=== PATIENT | male | born 1965 | race American Indian/Alaskan Native ===

== ENCOUNTER 2021-07-24 21:15 | Emergency (ER) | payer SELFPAY ==
[2021-07-24 23:17] LABS: Basophils # (Auto) 0.1 K/mm3 (0.0-0.1); Basophils % (Auto) 0.9 % (0.0-1.8); Eosinophils % (Auto) 0.6 % (0.0-4.3); Hemoglobin 13.4 gm/dl (11.8-15.2); Lymphocytes # (Auto) 1.6 K/mm3 (1.2-5.4); Lymphocytes % (Auto) 23.4 % (13.4-35.0); Mean Corpuscular HGB Conc 32 % (32-34); Mean Corpuscular Volume 83 fl (84-94); Monocytes # (Auto) 0.4 K/mm3 (0.0-0.8); Monocytes % (Auto) 5.3 % (0.0-7.3); Platelet Count 243 K/mm3 (140-440); Red Blood Count 5.06 M/mm3 (3.65-5.03); Red Cell Distribution Width 14.7 % (13.2-15.2)
[2021-07-24 23:35] LABS: Albumin 4.1 g/dL (3.9-5); Calcium 9.5 mg/dL (8.4-10.2)
[2021-07-25] MEDS ORDERED: cloNIDine 0.1 MG TAB PO ONE ×2 (03:50→06:37)
--- NOTE | 2021-07-25 03:52 | Emergency Department Report ---
ED General Adult HPI - General Chief complaint: High BP Stated complaint: HIGH BP Time Seen by Provider: 07/25/21 03:46 Source: patient Mode of arrival: Ambulatory Limitations: No Limitations - History of Present Illness Initial comments: Patient is 56 years old male with no significant past medical history. Patient stated that he went for a physical for his job and they found that his blood pressure is really high and asked him to come to the ER. Patient stated that he was never been diagnosed with high blood pressure before. He denies any heada yeni, neck pain, chest pain, shortness of breath, weakness numbness or tingling sensation. No bowel or bladder incontinence. - Related Data Allergies Allergy/AdvReac Type Severity Reaction Status Date / Time No Known Allergies Allergy Unverified 07/24/21 22:43 ED Review of Systems ROS: Stated complaint: HIGH BP Other details as noted in HPI Comment: All other systems reviewed and negative Constitutional: denies: chills, diaphoresis Respiratory: denies: cough, shortness of breath, SOB with exertion Cardiovascular: denies: chest pain, palpitations Gastrointestinal: denies: abdominal pain, nausea, vomiting, diarrhea, constipation, hematemesis, hematochezia Musculoskeletal: denies: back pain Neurological: denies: headache, weakness, numbness, paresthesias, confusion, abnormal gait ED Past Medical Hx - Past Medical History Previous Medical History?: No - Surgical History Past Surgical History?: No ED Physical Exam - General Limitations: No Limitations General appearance: alert, in no apparent distress - Head Head exam: Present: atraumatic, normocephalic, normal inspection - Eye Eye exam: Present: normal appearance, PERRL - ENT ENT exam: Present: normal exam, normal orophraynx, mucous membranes moist - Neck Neck exam: Present: normal inspection, full ROM. Absent: tenderness, meningismus - Respiratory Respiratory exam: Present: normal lung sounds bilaterally - Cardiovascular Cardiovascular Exam: Present: regular rate, normal rhythm, normal heart sounds - GI/Abdominal GI/Abdominal exam: Present: soft, normal bowel sounds. Absent: distended, tende rness, guarding, rebound, rigid, organomegaly, mass, bruit, pulsatile mass, hernia - Extremities Exam Extremities exam: Present: normal inspection, full ROM, normal capillary refill. Absent: tenderness - Back Exam Back exam: Present: normal inspection, full ROM. Absent: CVA tenderness (R), CVA tenderness (L) - Neurological Exam Neurological exam: Present: alert, oriented X3, CN II-XII intact - Psychiatric Psychiatric exam: Present: normal mood - Skin Skin exam: Present: warm, intact, normal color ED Course Vital Signs 07/24/21 07/25/21 07/25/21 22:37 04:06 05:43 Temperature 98.2 F Pulse Rate 97 H 81 78 Respiratory 16 15 Rate Blood Pressure 223/108 Blood Pressure 232/141 [Left] O2 Sat by Pulse 100 97 Oximetry 07/25/21 07/25/21 07/25/21 05:46 06:00 06:02 Temperature Pulse Rate 72 73 Respiratory 14 14 Rate Blood Pressure 184/107 177/102 Blood Pressure [Left] O2 Sat by Pulse 96 99 98 Oximetry ED Medical Decision Making - Lab Data Result diagrams: 07/24/21 23:03 07/24/21 23:03 - Medical Decision Making Patient is 56 years old male with no significant past medical history. Patient stated that he went for a physical for his job and they found that his blood pressure is really high and asked him to come to the ER. Patient stated that he was never been diagnosed with high blood pressure before. He denies any headache, neck pain, chest pain, shortness of breath, weakness numbness or tingling sensation. No bowel or bladder incontinence. Patient received clonidine 0.2 mg with significant improvement in his blood pressure. Labs reviewed and is unremarkable. I started patient on Norvasc 10 mg and advised to follow-up with his primary doctor in the next 2 to 3 days and to return to the ER if he develop any new symptoms. Critical care attestation.: If time is entered above; I have spent that time in minutes in the direct care of this critically ill patient, excluding procedure time. ED Disposition Clinical Impression: Malignant hypertension Disposition: 01 HOME / SELF CARE / HOMELESS Is pt being admited?: No Condition: Stable Instructions: Hypertension (ED), Hypertension, Adult Referrals: PRIMARY CAREMD [Primary Care Provider] - 3-5 Days [facility] [Provider Group] - 3-5 Days
[2021-07-25 08:20] VITALS: BP 161/105
== END 2021-07-25 08:41 | disposition home or self-care (01) ==
LOC: ED 21:15
DX: I10 Essential (primary) hypertension (principal)
CPT/HCPCS: 36415; 80053; 85025; 99283